=== PATIENT | female | born 1990 | race Two or more races ===

== ENCOUNTER 2018-06-19 13:24 | Emergency (ER) | payer OTHER, MEDICAID ==
--- NOTE | 2018-06-19 14:27 | EDM.PDOC ---
ED HPI GENERAL MEDICAL PROBLEM - General Chief Complaint: Lower Extremity Injury/Pain Stated Complaint: LEFT FOOT Time Seen by Provider: 06/19/18 13:42 Source of Information: Reports: Patient History Limitations: Reports: No Limitations - History of Present Illness INITIAL COMMENTS - FREE TEXT/NARRATIVE: Krystina is a 28-year-old who slipped on the ice 1 hour ago and has pain in her ankle. No change in sensation she was walking it and has moderate pain. Examination Quick[facility] xray trimalleolar fracture. That is discussed with Dr. Green orthopedist he is presently viewing through offsite x-ray. Left ankle Pain Score (Numeric/FACES): 10 - Related Data Allergies Allergy/AdvReac Type Severity Reaction Status Date / Time azithromycin Allergy Hives Verified 06/19/18 13:30 [From Zithromax Z-Logan] shellfish derived Allergy Rash Verified 06/19/18 13:30 Home Meds: Home Meds Hydrocodone/Acetaminophen [Hydrocodon-Acetaminophen 5-325] 1 each PO Q4HR PRN # 16 tablet 06/19/18 [Rx] Past Medical History - Past Health History Medical/Surgical History: Denies Medical/Surgical History Social & Family History - Tobacco Use Smoking Status *Q: Never Smoker Second Hand Smoke Exposure: No - Caffeine Use Caffeine Use: Reports: None - Recreational Drug Use Recreational Drug Use: No - Living Situation & Occupation Living situation: Reports: Single Review of Systems - Review of Systems Review Of Systems: ROS reveals no pertinent complaints other than HPI. ED EXAM, GENERAL - Physical Exam Exam: See Below Free Text/Narrative:: He has marked pain and swelling ankle. No compromise sensation her ankle/foot. Exam Limited By: No Limitations General Appearance: Alert, Moderate Distress Eye Exam: Bilateral Eye: Normal Inspection Ears: Normal External Exam, Normal Canal, Hearing Grossly Normal, Normal TMs Ear Exam: Bilateral Ear: Auricle Normal, Canal Normal, TM normal Nose: Normal Inspection Throat/Mouth: Normal Inspection, Normal Lips, Normal Teeth, Normal Gums, Normal Oropharynx, Normal Voice, No Airway Compromise Head: Atraumatic, Normocephalic Neck: Normal Inspection, Supple, Non-Tender, Full Range of Motion Respiratory/Chest: No Respiratory Distress, Lungs Clear, Normal Breath Sounds, No Accessory Muscle Use, Chest Non-Tender Cardiovascular: Normal Peripheral Pulses, Regular Rate, Rhythm, No Edema, No Gallop, No JVD, No Murmur, No Rub Peripheral Pulses: 1+: Brachial (R), Radial (L), Dorsalis Pedis (L), 2+: Dorsalis Pedis (R) GI/Abdominal: Normal Bowel Sounds, Soft, Non-Tender, No Organomegaly, No Distention (Female) Exam: Deferred Rectal (Female) Exam: Deferred Back Exam: Normal Inspection, Full Range of Motion Extremities: Joint Swelling, Limited Range of Motion (Moderate swelling and pain with palpation medial and lateral malleolus. No compromised sensation.) Neurological: Alert, Oriented, CN II-XII Intact, Normal Cognition, Normal Reflexes, No Motor/Sensory Deficits Psychiatric: Normal Affect, Normal Mood Skin Exam: Warm, Dry, Intact Course - Vital Signs Last Recorded V/S: Last Vital Signs Temp 36.9 C 06/19/18 16:21 Pulse 84 06/19/18 16:21 Resp 18 06/19/18 16:21 BP 150/105 H 06/19/18 16:21 Pulse Ox 100 06/19/18 16:21 Departure - Departure Time of Disposition: 14:25 (Trimalleolar fracture as discussed with Dr. Green patient was see Dr. Green on Friday06/22/18 elevated like ibuprofen Tylenol and Vicodin as needed) Disposition: Home, Self-Care 01 Condition: Good Clinical Impression: Trimalleolar fracture of left ankle Qualifiers: Encounter type: initial encounter Fracture type: closed Qualified Code(s): S82.852A - Displaced trimalleolar fracture of left lower leg, initial encounter for closed fracture - Discharge Information Prescriptions: Hydrocodone/Acetaminophen [Hydrocodon-Acetaminophen 5-325] 1 each PO Q4HR PRN # 16 tablet PRN Reason: Pain Instructions: Ankle Fracture, Lygi-da-Nson Referrals: PCP,None [Primary Care Provider] - Forms: ED Department Discharge Additional Instructions: Diagnosis: Trimalleolar fracture I've spoken to Dr. Green. Arrangements have been made for surgery on Friday. Other nurses will call you to make sure arrangements are complet for surgery. You'll have nothing to eat after midnight before the following morning surgery. You have been given prescription for heart hydrocodone use aggressively upfront - if you decrease the pain early, to begin with, you will have less pain on the back (later). Elevate elevate elevate your leg above your heart. use crutches. You have to be very careful so you don't slip again on any icy surface. That means no going outside to walk in the snow ice cold weather Elevate elevate elevate and use ice packs!
--- NOTE | 2018-06-19 15:09 | CR ---
INDICATION: Fell on ice. LEFT ANKLE: Three views of the left ankle revealed a trimalleolar fracture subluxation with minimal lateral subluxation of the talus with respect to the tibia. Oblique fracture through the distal fibula at the lateral malleolus is noted with almost transverse fracture through the medial malleolar portion of the tibia. The posterior malleolar fracture site included a small portion of the ankle mortise joint surface. Soft tissue swelling is noted, more prominently laterally. IMPRESSION: Trimalleolar fracture with subluxation. MTDD
--- NOTE | 2018-06-19 15:12 | CR ---
INDICATION: Fell on ice. LEFT TIBIA/FIBULA: Frontal and lateral views of the left tibia and fibula revealed the trimalleolar fracture subluxation, as noted in the left ankle report. The examination was obtained 06/19/18 - no comparisons were available. The remainder of the tibia and fibula on the left appeared normal. IMPRESSION: Trimalleolar fracture subluxation. MTDD
[2018-06-19 16:51] VITALS: BP 150/105
== END 2018-06-19 16:29 | disposition home or self-care (01) ==
LOC: FB.ED 13:24
DX: S82.852A Displaced trimalleolar fracture of left lower leg, initial encounter for closed fracture (principal); W00.0XXA Fall on same level due to ice and snow, initial encounter; Z88.1 Allergy status to other antibiotic agents; Z91.013 Allergy to seafood
CPT/HCPCS: 73590-LT; 73610-LT; 99283

== ENCOUNTER 2018-06-22 09:04 | Day surgery (SDC) | payer OTHER, MEDICAID ==
[2018-06-22] MEDS ORDERED: Propofol 200 MG/20 ML SDV IV ONE (09:05)
[2018-06-22] MEDS ORDERED: fentaNYL 100 MCG/2 ML SDV IV ONE (09:05)
[2018-06-22] MEDS ORDERED: Lidocaine 2% 100 MG/5 ML Syringe IVPUSH ONE (09:05)
[2018-06-22] MEDS ORDERED: Ketorolac 30 MG/ML SDV IVPUSH ONE (09:05)
[2018-06-22] MEDS ORDERED: Ondansetron 4 MG/2 ML SDV IVPUSH ONE ×2 (09:05→15:05)
[2018-06-22] MEDS ORDERED: Dexamethasone 4 MG/ML SDV INJECT ONE (09:05)
[2018-06-22] MEDS ORDERED: Lactated Ringers 1,000 ML IV ONE (09:05)
[2018-06-22] MEDS ORDERED: HYDROmorphone 2 MG/ML SDV IV ONE (09:05)
[2018-06-22] MEDS ORDERED: Midazolam 1 MG/ML 2 ML SDV IV ONE (09:05)
[2018-06-22] MEDS ORDERED: Sodium Chloride 0.9% 10 ML Syringe FLUSH PRN (09:15)
[2018-06-22] MEDS ORDERED: Lactated Ringers 1,000 ML IV SCH (09:15)
[2018-06-22] MEDS ORDERED: ceFAZolin 2 GM in Premix Bag 1 BAG IV ONE (10:00)
[2018-06-22] MEDS ORDERED: HYDROmorphone 2 MG/ML SDV IVPUSH ONE ×2 (10:29→14:29)
[2018-06-22 16:28] VITALS: BP 138/90
--- NOTE | 2018-06-22 16:42 | OR ---
DATE OF OPERATION: 06/22/2018 SURGEON: Jonny Green DO PREOPERATIVE DIAGNOSIS: Left trimalleolar ankle fracture closed. POSTOPERATIVE DIAGNOSIS: Left trimalleolar ankle fracture closed. PROCEDURE: Open reduction and internal fixation of left trimalleolar ankle fracture with bimalleolar fixation. ANESTHESIA: Popliteal block plus LMA. ESTIMATED BLOOD LOSS: 25 mL. COMPLICATIONS: None. SPECIMEN: None. FLUID: Lactated Ringer's solution. DISCHARGE DISPOSITION: Stable to PACU. HISTORY AND INDICATIONS FOR PROCEDURE: The patient was seen Friday in the emergency department. She was found to have a trimalleolar ankle fracture which was displaced. She was placed in a posterior splint and asked to follow up. I evaluated her in the preoperative holding area. Risks and benefits of the procedure were explained to the patient. Informed consent was obtained. Preoperative imaging confirmed the above-mentioned diagnosis. DETAILS OF PROCEDURE: The patient was seen preoperatively by myself and the Anesthesia staff in the preoperative holding area where the operative site was marked. She was brought to the operative suite by Anesthesia staff where an LMA was administered for general anesthesia as well as popliteal block. A well- padded tourniquet was placed on the left thigh. The left lower extremity was then prepped and draped in a sterile manner. All extremities were found to be well padded. The lateral malleolus was marked. An incision was made from the tip of the lateral malleolus approximately around 12 cm. The hematoma was identified and went directly down with an elevator on the hematoma down to the level of the bone and then elevated bluntly. The superficial peroneal nerve was not visualized during this process. The fracture site was then irrigated and cleared. I used lobster claws to approximate the 2 fragments. I then used lag screw fixation to lag the fragment together. I then placed a one-third tubular plate and then placed cortical screws plus a distal cancellous screw. This provided good fixation. I then focused on the medial incision. I used fluoroscopy to visualize the tip of the medial malleolus. I then made an incision over it. The fracture site was identified. I used bone tenaculums to keep the 2 fragments together and then used a cannulated wire and then over drilled the distal cortex and then inserted a 50 mm screw. Unfortunately, the distal medial malleolar fragment split in half. Because of the patient's age, I took considerable time to reconstruct this distal fragment and provide fixation. I was able to put the distal portion together with bone tenaculums and then I used an anchor on the proximal portion of the tibia, and then used two 2.0 drill bits to go through my 2 distal fragments and then tied this together. I then used a 2.5 bit and then placed cancellous screw which was 30 mm through the distal anterior fragment into the proximal tibia. This provided excellent fixation. I took final films which showed everything to be in good alignment. I then copiously irrigated with saline and then closed subcutaneously with Stratafix as well as some 2-0 Vicryl and then covered with skin ralph, Adaptic, sterile dressing, and put her into a CAM walker boot. The tourniquet was let down at 78 minutes. /[id number] JOHNIE/BECKIE
== END 2018-06-22 16:30 | disposition home or self-care (01) ==
LOC: FB.SDS 09:04
PROVIDERS: ATTEND Orthopaedic Surgery
DX: S82.852A Displaced trimalleolar fracture of left lower leg, initial encounter for closed fracture (principal); W00.0XXA Fall on same level due to ice and snow, initial encounter; Z88.1 Allergy status to other antibiotic agents; Z91.013 Allergy to seafood
CPT/HCPCS: 36415; 76000; 81025; 85025; J0690; J1100; J1170; J1885; J2001; J2250; J2405; J2704; J3010; J7120